=== PATIENT | female | born 1950 | race African-American/Black ===

== ENCOUNTER 2021-12-26 17:27 | Emergency (ER) | payer OTHER ==
[~2021-12-26] VITALS: Ht 165.1 cm; Wt 78.0 kg
[2021-12-26 21:00] VITALS: BP 188/94
== END 2021-12-26 21:30 | disposition home or self-care (01) ==
LOC: ER 17:27
DX: J34.2 Deviated nasal septum (principal); E11.9 Type 2 diabetes mellitus without complications; I10 Essential (primary) hypertension
CPT/HCPCS: 70486; 99284

== ENCOUNTER 2022-06-29 17:21 | Emergency (ER) | payer OTHER, MEDICAID ==
[~2022-06-29] VITALS: Ht 172.7 cm; Wt 82.0 kg
[2022-06-29 17:24] VITALS: BP 118/63
== END 2022-06-29 19:29 | disposition home or self-care (01) ==
LOC: ER 17:21
DX: K08.89 Other specified disorders of teeth and supporting structures (principal)
CPT/HCPCS: 99283